=== PATIENT | male | born 1985 | race Caucasian/White ===

== ENCOUNTER 2021-04-08 21:51 | Emergency (ER) | payer MEDICAID ==
[~2021-04-08] VITALS: Ht 193 cm; Wt 105.0 kg
[2021-04-08 22:30] LABS: BASOPHILS # (AUTO) 0.1 X10'3 (0-0.2); BASOPHILS % (AUTO) 1.4 % (0-1); EOSINOPHILS # (AUTO) 0.1 X10'3 (0-0.9); EOSINOPHILS % (AUTO) 1.6 % (0-6); HEMATOCRIT 40.1 % (42.0-52.0); HEMOGLOBIN 14.3 g/dl (14.0-17.9); LYMPHOCYTES # (AUTO) 1.4 X10'3 (1.1-4.8); LYMPHOCYTES % (AUTO) 25.2 % (21-51); MEAN CORPUSCULAR HEMOGLOBIN 35.4 PG (27.0-31.0); MEAN CORPUSCULAR HGB CONC 35.6 g/dL (33.0-36.5); MEAN CORPUSCULAR VOLUME 99.5 FL (78-98); MEAN PLATELET VOLUME 6.4 FL (7.4-10.4); MONOCYTES # (AUTO) 0.4 X10'3 (0-0.9); MONOCYTES % (AUTO) 7.5 % (2-12); NEUTROPHILS # (AUTO) 3.6 X10'3 (1.8-7.7); NEUTROPHILS % (AUTO) 64.3 % (42-75); PLATELET COUNT 316 X10'3 (140-440); RED BLOOD COUNT 4.03 X10'6 (4.70-6.10); RED CELL DISTRIBUTION WIDTH 14.7 % (11.5-14.5); WHITE BLOOD COUNT 5.7 X10'3 (4.5-11.0)
[2021-04-08 22:30] LABS: CLARITY,URINE CLEAR (Clear); COLOR,URINE STRAW (Yellow); GLUCOSE, URINE NEGATIVE (Neg); KETONES,URINE NEGATIVE (Neg); LEUKOCYTE ESTERASE ,URINE NEGATIVE (Neg); NITRITES, URINE NEGATIVE (Neg); OCCULT BLOOD,URINE NEGATIVE (Neg); PROTEIN,URINE NEGATIVE (Neg); UROBILINOGEN,URINE 0.2 E.U/dL (0.2-1.0)
--- NOTE | 2021-04-08 22:30 | NUR ---
NO LIGATURE HAGER TO NECK ONLY VERY FAINT REDNESS APPRECIATED. PT IS MOVING HEAD/NECK ALL ABOUT AND DENIES COMPLAINT. STATES HE WET A TOWEL AND WRAPPED IT AROUND HIS NECK AND THEN SHUT IT IN THE SLIDING GLASS DOOR.
[2021-04-08 22:36] LABS: UA COLLECTION TYPE CLN CATCH MIDSTREAM
[2021-04-08 22:42] LABS: ALANINE AMINOTRANSFERASE 55 U/L (12-78); ALBUMIN 4.6 G/DL (3.4-5.0); ALBUMIN/GLOBULIN RATIO 1.2 (1.1-1.5); ALKALINE PHOSPHATASE 88 IU/L (46-116); ANION GAP 13 (8-16); ASPARTATE AMINO TRANSFERASE 64 U/L (10-37); BILIRUBIN,TOTAL 0.4 MG/DL (0.1-1.0); BLOOD UREA NITROGEN 8 MG/DL (7-18); BUN/CREATININE RATIO 10.3 (5.4-32.0); CALCIUM 8.3 MG/DL (8.5-10.1); CHLORIDE 102 MMOL/L (99-107); CREATININE 0.78 MG/DL (0.60-1.10); GLUCOSE 119 MG/DL (70-104); POTASSIUM 3.6 MMOL/L (3.5-5.1); SODIUM 141 MMOL/L (135-145); TOTAL CARBON DIOXIDE 25.9 MMOL/L (24-32); TOTAL PROTEIN 8.3 G/DL (6.4-8.2); eGFR > 90 ML/MIN
[2021-04-08 22:46] LABS: URINE AMPHETAMINE SCREEN NEGATIVE (Neg); URINE BARBITUATE SCREEN NEGATIVE (Neg); URINE BENZODIAZEPINES SCREEN NEGATIVE (Neg); URINE CANNABINOID SCREEN POSITIVE (Neg); URINE COCAINE SCREEN NEGATIVE (Neg); URINE METHADONE SCREEN NEGATIVE (Neg); URINE OPIATE SCREEN NEGATIVE (Neg); URINE PHENCYCLIDINE SCREEN NEGATIVE (Neg)
[2021-04-08 22:52] LABS: ETHANOL 0.421 GM/DL (0.0-0.010)
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
[2021-04-08] MEDS ORDERED: phenobarbital inj 260 MG in normal saline 100ml IV soln 100 ML IV ONE (23:20)
[2021-04-08] MEDS ORDERED: magnesium oxide 400mg tablet PO ONE (23:20)
[2021-04-08] MEDS ORDERED: thiamine 100mg tablet PO ONE (23:20)
[2021-04-08] MEDS ORDERED: normal saline 1000ML IV soln IVB ONE (23:20)
[2021-04-08 23:25] LABS: MAGNESIUM 2.2 MG/DL (1.5-2.4)
[2021-04-09] MEDS ORDERED: acetaminophen 325mg tablet PO PRN (01:10)
--- NOTE | 2021-04-09 01:38 | NUR ---
EKG SHOW SINUS TACHYCARDIA DR GAYATRI PATIENT COMPLAIN OF BACK PAIN TYLENOL 650MG ORAL GIVEN.
--- NOTE | 2021-04-09 03:08 | NUR ---
Packet sent to [facility]
--- NOTE | 2021-04-09 13:12 | NUR ---
patient sitting quietly in bed eating lunch.
--- NOTE | 2021-04-09 18:22 | NUR ---
One to one with the patient who is quietly sitting on his bed. He denies any mental health symptoms. His affect is blunted. He is pleasant and cooperative. He denies thoughts to harm himself or others.
--- NOTE | 2021-04-09 20:00 | NUR ---
The patient reported being bored and he was given several books and has been on his bed reading.
--- NOTE | 2021-04-09 21:36 | NUR ---
The patient appears to be sleeping.
--- NOTE | 2021-04-09 22:29 | NUR ---
The patient appears to be sleeping
--- NOTE | 2021-04-10 01:00 | NUR ---
The patient appears to be sleeping.
--- NOTE | 2021-04-10 03:30 | NUR ---
The patient appears to be sleeping.
--- NOTE | 2021-04-10 04:53 | NUR ---
The patient appears to be sleeping
--- NOTE | 2021-04-10 07:15 | NUR ---
Patient at this time sleeping on his left side, patient with normal breathing patterns ans easily arousable.
--- NOTE | 2021-04-10 08:45 | NUR ---
PT RESTING ON BACK RR EQUAL AND UNLABORED
--- NOTE | 2021-04-10 09:04 | NUR ---
Patient awake at this time eating breakfast.
--- NOTE | 2021-04-10 10:53 | NUR ---
Patient at this time resting semms asleep, possibly being disscharged today.
--- NOTE | 2021-04-10 10:55 | NUR ---
PATIENT AT THIS TIME READING A BOOK NO, PATIENT PLESANT NO SIGNS OF DISTRESS.
--- NOTE | 2021-04-10 12:00 | NUR ---
PT RESTING ON BACK WITH EYES CLOSED RR EQUAL AND UNLABORED
--- NOTE | 2021-04-10 18:51 | NUR ---
The patient is resting on his bed and is pleasant and social with peers and staff. He denies having depression or suicidal thoughts. He denied anxiety. He denied A/V hallucinations.
--- NOTE | 2021-04-10 19:18 | NUR ---
The patient has tatiana accepted at [facility].
[2021-04-10 20:56] VITALS: BP 144/99
[2021-04-10] MEDS ORDERED: NO HOME MEDS (22:05)
[2021-04-14] MEDS ORDERED: HYDR50TA65 PO (15:39)
== END 2021-04-10 20:59 ==
LOC: ER 21:52 → EDBD 21:52 → INTOOBSV 04-10 16:50 → ADULT MH 04-10 16:50 → UNDOADMOB 04-10 16:50 → ER 04-10 20:59 → UNDODISOB 04-10 21:52
DX: R45.851 Suicidal ideations (principal); Z20.822 Contact with and (suspected) exposure to COVID-19; R06.02 Shortness of breath; R45.850 Homicidal ideations; M54.2 Cervicalgia; F10.129 Alcohol abuse with intoxication, unspecified; Z88.1 Allergy status to other antibiotic agents; Z88.8 Allergy status to other drugs, medicaments and biological substances; Y90.0 Blood alcohol level of less than 20 mg/100 ml
CPT/HCPCS: 36415; 72040; 80053; 80305; 80320; 81003; 83735; 84443; 85025; 87426; 93005; 96365; 99285; J2560; J7030